=== PATIENT | female | born 1970 | race Caucasian/White ===

== ENCOUNTER 2020-03-15 08:20 | Emergency (ER) | payer MEDICAID, OTHER ==
[~2020-03-15] VITALS: Ht 160 cm; Wt 60.3 kg
[2020-03-15 08:30] VITALS: BP 129/85
== END 2020-03-15 08:51 | disposition home or self-care (01) ==
LOC: ER 08:23
DX: T63.441A Toxic effect of venom of bees, accidental (unintentional), initial encounter (principal); Y92.89 Other specified places as the place of occurrence of the external cause